=== PATIENT | female | born 1980 | race Caucasian/White ===

== ENCOUNTER 2016-10-08 03:50 | Inpatient (IN) | payer MEDICAID ==
[2016-10-08 04:36] VITALS: BMI 32.9
[2016-10-08] MEDS ORDERED: LACTATED RINGERS 1,000 ML IV PRN (05:11)
[2016-10-08] MEDS ORDERED: OXYTOCIN IN LR 500 ML IV ONE ×2 (05:11→05:25)
[2016-10-08] MEDS ORDERED: LACTATED RINGERS 1,000 ML IV SCH (05:15)
[2016-10-08] MEDS ORDERED: PENICILLIN G POTASSIUM 5 MMU VIAL ONE (05:24)
[2016-10-08] MEDS ORDERED: NS 0.9% (MINI-BAG PLUS) 100 ML IV ONE (05:24)
[2016-10-08] MEDS ORDERED: LIDOCAINE Viscous 2% 15 ML UDCUP ONE (05:25)
[2016-10-08] MEDS ORDERED: LIDOCAINE 1% (PRES FREE) 30 ML VIAL ONE (05:25)
[2016-10-08] MEDS ORDERED: PUMP TUBING ONE (05:25)
[2016-10-08] MEDS ORDERED: MINERAL OIL 25 ML BOT ONE (05:25)
[2016-10-08] MEDS ORDERED: OXYTOCIN 10 UNITS/ML VIAL ONE (05:25)
[2016-10-08] MEDS ORDERED: IV START KIT ONE (05:27)
[2016-10-08] MEDS ORDERED: PENICILLIN G POTASSIUM 5 MMU in NS 0.9% (MINI-BAG PLUS) 100 ML IV ONE (05:30)
[2016-10-08 06:17] LABS: HEMATOCRIT 35.1 % (37.0-47.0); HEMOGLOBIN 11.4 gm/l (12.0-16.0); MEAN CELL VOLUME 83.6 fl (81.0-99.0); MEAN CORPUSCULAR HEMOGLOBIN 27.1 pg (27.0-31.0); MEAN CORPUSCULAR HGB CONC 32.5 g/dl (33.0-37.0); RED CELL DISTRIBUTION WIDTH 15.2 % (11.5-14.5)
[2016-10-08] MEDS ORDERED: OXYTOCIN IN LR 500 ML IV PRN (09:23)
--- NOTE | 2016-10-08 09:23 | PDOC36 ---
Provider Note Subject: cc: Admission H&P HPI: 36 y.o. year old SOLOMON 11/03/2016, by Last Menstrual Period at 36w2d who presents with PROM no in active labor. REVIEW OF SYSTEMS GENERAL: No fever or headache EYES: No double or blurry vision. CARDIOVASCULAR: No chest pain. RESPIRATORY: No severe shortness of breath or cough. GASTROINTESTINAL: No nausea or vomiting or right upper quadrant pain. PSYCHIATRIC: No anxiety or depression. PROBLEMS Patient Active Problem List Diagnosis Date Noted Supervision of normal 04/16/2016 Thrombocytopenia complicating (HCC) 03/25/2016 Dysplasia of cervix 01/11/2012 OB HISTORY #: 1, Date: 05/03/04, Sex: Male, Weight: 3.402 kg (7 lb 8 oz), GA: 40w0d, Delivery: Vaginal, Spontaneous Delivery, Apgar1: None, Apgar5: None, Living: Yes , Comments: None #: 2, Date: 05/29/09, Sex: Male, Weight: 3.175 kg (7 lb), GA: 40w0d, Delivery: Vaginal, Spontaneous Delivery, Apgar1: None, Apgar5: None, Living: Yes, Comments : None #: 3, Current Dating: Based On SOLOMON GA Dif Comments GA Cyc Lut BC Entered By Date Last Menstrual Period on 01/28/16 (Exact Date) 11/03/16 Working Rajani Vincent RN 03/24/16 Ultrasound on 06/29/16 11/02/16 +1d C/w LMP. NL anatomy. Fundal placenta. NL fluid 22w0d Colby Galvin MD 07/01/16 PSH No past surgical history SOC HX reports that she has never smoked. She has never used smokeless tobacco. She reports that she drinks alcohol. She reports that she does not use illicit drugs. ALL No Known Allergies MEDICATIONS PNV PHYSICAL EXAMINATION VITAL SIGNS: BP 117/72 P 84 T 99.1 Estimated body mass index is 31.73 kg/(m^2) as calculated from the following: Height as of 08/13/16: 1.67 m (5' 5.75"). Weight as of 10/06/16: 88.5 kg (195 lb 1.7 oz). Total weight gain is 20.914 kg (46 lb 1.7 oz) FHT: 140's baseline, mod guillermina, + accels Ernest: Intermittent and not consistent SVE: /-2 GENERAL: No distress CARDIOVASCULAR: Regular rate and rhythm, no murmur RESPIRATORY: Clear to auscultation bilaterally, respiratory effort is nonlabored at rest. GASTROINTESTINAL: Gravid no fundal tenderness, vertex by [facility] STUD[facility] O+ Antibody- Rubella Immune Hep B- HIV- GC/Chlamydia- Trep- H/H -, plts 135 GBS unk pending ASSESSMENT 36 y.o. year old SOLOMON 11/03/2016, by Last Menstrual Period at 36w2d who presents with PROM. PLAN Labor- PROM with good story. Not in any consistent pattern. Will begin pitocin augmentation 4 hours after GBS prophylaxis complete x 1. GBS- unk. Prophylaxis started. RH + Gestational Thrombocytopenia- Repeat today with increase to 135. No need for intervention at this time. FWB- category I. Follow per pit protocol.
[2016-10-08] MEDS ORDERED: PENICILLIN G 3 MIL UNIT PREMIX 50 ML IV ONE ×2 (10:07→14:26)
[2016-10-08] MEDS: PENICILLIN G 3 MIL UNIT PREMIX 3 MMU in Premix (D5W) 50 ml 1 EACH IV SCH ×2 (10:13→14:31)
[2016-10-08] MEDS ORDERED: EPIDURAL PUMP SET ONE (11:33)
[2016-10-08] MEDS ORDERED: FENTANYL/ROPIVACAINE EPIDURAL 250 ML EP ONE (11:34)
[2016-10-08] MEDS ORDERED: EPIDURAL PROCEDURE TRAY ONE (11:47)
[2016-10-08] MEDS: LACTATED RINGERS 1,000 ML IV SCH ×3 (12:03→16:09)
[2016-10-08] MEDS ORDERED: EPHEDRINE SULFATE 50 MG/ML 1ML VIAL IV PRN (12:18)
[2016-10-08] MEDS ORDERED: DIPHENHYDRAMINE HCL 50 MG/1 ML VIAL IV PRN (12:18)
[2016-10-08] MEDS ORDERED: ONDANSETRON 4 MG/2ML 2 ML VIAL IV PRN (12:18)
[2016-10-08] MEDS ORDERED: SODIUM CHLORIDE 0.9% 500 ML IV PRN (12:18)
[2016-10-08] MEDS ORDERED: NALOXONE HCL 0.4 MG/ML VIAL IV PRN (12:18)
[2016-10-08] MEDS ORDERED: METOCLOPRAMIDE HCL 5 MG/ML 2ML VIAL IV PRN (12:18)
[2016-10-08] MEDS ORDERED: NALBUPHINE HCL 20 MG/ML AMP IV PRN (12:18)
[2016-10-08] MEDS ORDERED: LACTATED RINGERS 500 ML IV PRN (12:18)
[2016-10-08] MEDS ORDERED: DOCUSATE SODIUM 100 MG CAPSULE PO PRN (17:12)
[2016-10-08] MEDS ORDERED: SENNOSIDES 8.6 MG TABLET PO PRN (17:12)
[2016-10-08] MEDS ORDERED: LANOLIN 50 APPLIC/7G TUBE TP PRN (17:12)
[2016-10-08] MEDS ORDERED: MAGNESIUM HYDROXIDE 30 ML UDCUP PO PRN (17:12)
[2016-10-08] MEDS ORDERED: HYDROCODONE/ACETAMINOPHEN 5/325MG TABLET PO PRN (17:12)
[2016-10-08] MEDS ORDERED: BENZOCAINE/MENTHOL 60 APPLIC/BOT TP PRN (17:12)
--- NOTE | 2016-10-08 17:13 | PCMDEL ---
Delivery Note - Labor 1st stage (hr/min):: 7 hours 30 min 2nd stage (hr/min):: 19 min 3rd stage (hr/min):: 3 min Total (hr/min):: 8 hours Pushed (hr/min):: 19 min - Delivery Delivery (Date): 10/08/16 Delivery (Time): 16:49 Infant Gender: Male Presentation: Cephalic Position: OP Umbilical Cord: 3 Vessel Delayed Cord Clamping:: 2-3 min 1 Minute Total: 9 5 Minute Total: 9 Placenta:: Intact EBL:: 300 Comments:: Presented with PPROM and not in active labor. Started on pitocin augmentation and proceeded on normal labor curve to complete. Delivered via without complications. Delayed cord clamping x 2 min. Vigorous infant. Active third stage with pit and fundal massage. Received 3 doses PCN prior to delivery.
[2016-10-09] MEDS: IBUPROFEN 800 MG TABLET PO PRN ×2 (01:34→21:26)
[2016-10-09 06:47] LABS: HEMATOCRIT 32.1 % (37.0-47.0); HEMOGLOBIN 10.4 gm/l (12.0-16.0)
[2016-10-09] MEDS: FENTANYL/ROPIVACAINE EPIDURAL 250 ML EP SCH (07:07)
[2016-10-09] MEDS: LACTATED RINGERS 1,000 ML IV SCH ×2 (07:18→07:19)
--- NOTE | 2016-10-09 08:35 | PDOC44 ---
- Subjective Day: 1 Reports Pain Tolerable - Objective Temp Pulse Resp BP Pulse Ox 98.8 F 75 16 92/55 10/09/16 07:29 10/09/16 07:29 10/09/16 07:29 10/09/16 07:29 Lab Results 10/09/16 06:20 Hgb 10.4 L Hct 32.1 L Current Medications Generic Name Dose Route Start Last Admin Trade Name Freq PRN Reason Stop Dose Admin Acetaminophen/Hydrocodone Bitart 1 - 2 tab 10/08/16 17:12 [place] 5/325 PO Q4H PRN Pain (Moderate) Benzocaine/Menthol 1 applic 10/08/16 17:12 Dermoplast TP PRN PRN Patient Comfort Docusate Sodium 100 mg 10/08/16 17:12 Colace PO DAILY PRN Comfort Emollient Ointment 1 applic 10/08/16 17:12 [id number] TP PRN PRN sore nipples Ropivacaine/Fentanyl/NS 250 mls @ 0 mls/hr 10/08/16 12:15 10/09/16 07:07 Fentanyl 2 Mcg/Ml + Ropivacaine 0.125% Ep Bag EP Not Given EPI ZI Protocol Per Protocol Ibuprofen 800 mg 10/08/16 17:12 10/09/16 01:34 Motrin PO 800 mg Q6H PRN Administration Pain (Mild) Magnesium Hydroxide 30 ml 10/08/16 17:12 Milk Of Magnesia PO BEDTIME PRN Constipation Senna 17.2 mg 10/08/16 17:12 Senokot PO BEDTIME PRN Comfort Sodium Chloride 10 ml 10/08/16 17:12 10/09/16 01:31 Normal Saline 10ml Flush IV 10 ml PRN PRN Administration IV Flush - Physical Exam General: Afebrile Neurological: Oriented x 4 Lungs: Clear to Auscultation Bilaterally Cardiovascular: Regular Rate and Rhythm Fundus: Firm, Below Umbilicus Abdomen: Normal Bowel Sounds Skin: Normal Color - Problems:Assessment/Plan (1) delivery, delivered Status: AcuteAssessment/Plan: Doing well Normal Exam Encourage Continue routine care Disposition: Stable
[2016-10-10] MEDS: FENTANYL/ROPIVACAINE EPIDURAL 250 ML EP SCH (06:56)
[2016-10-10 08:02] VITALS: BP 95/54
[2016-10-10] MEDS ORDERED: IV START KIT ONE (08:04)
--- NOTE | 2016-10-10 10:06 | PDOC39B ---
Hospital Course: ADMIT DATE: 10/08/16 DISCHARGE DATE: 10/10/16 ADMISSION DIAGNOSES: IUP PPROM PROCEDURES: Augmentation of labor w Pit HISTORY OF PRESENT ILLNESS: 36 year old G3 T2 L2 at 36 weeks 2 days presenting with leakage of fluid HOSPITAL COURSE: The patient was found to have PPROM w inconsistent UCs. Labor augmented w Pit. Pt progressed to complete and had uncomplicated . Although only 36 wks, baby appeared term. By day of discharge the patient is ambulating, eating, voiding, and passing flatus without difficulty. Pain is controlled and lochia is appropriate. She is mainly bottle feeding, and occassionally - Physical Exam Vital Signs: Temp Pulse Resp BP Pulse Ox 97.6 F 62 16 95/54 10/10/16 08:00 10/10/16 08:00 10/10/16 08:00 10/10/16 08:00 General: Afebrile, No Acute Distress Psych/Mental Status: Mood/Affect Appropriate, Judgment/Insight Intact, Bonding Well Neurological: Grossly Intact, Alert, Normal Speech HEENT: Atraumatic, Mucous membr. moist/pink Lungs: Clear to Auscultation Bilaterally Cardiovascular: Regular Rate and Rhythm Breast: Soft Fundus: Firm, Midline, Below Umbilicus Skin: Normal Color, Warm, Dry, Intact, No Rash - Discharge Diagnosis (1) delivery, delivered Status: AcuteAssessment/Plan: Doing well PPD#2 Normal Exam support DC home PP precautions given pelvic rest x 6-8 wks (2) (spontaneous vaginal delivery) Status: Acute - Discharge Plan Condition: Good Disposition: Home Instruction Forms: Vaginal Discharge Instructions Prescriptions: Docusate Sodium [COLACE 100 MG CAPSULE (F)] 100 mg PO DAILY PRN #60 PRN Reason: Comfort Benzocaine/Menthol [DERMOPLAST SPRAY (F)] 1 applic TP PRN PRN #1 PRN Reason: Patient Comfort Ibuprofen [IBUPROFEN 800 MG TABLET ([facility])] 800 mg PO Q6H PRN #60 PRN Reason: Pain (Mild) Lanolin [LANOLIN 7 G TUBE (F)] 1 applic TP PRN PRN #1 PRN Reason: Sore Nipples Follow-Up: Colby Galvin MD [Primary Care Provider] - In 2-3 days (clinic to call to sched 3d mom and baby, pt to sched 6 wk PP exam)
== END 2016-10-10 12:05 | disposition home or self-care (01) | DRG 775 ==
LOC: FBC 03:50 → FBCOUT 03:50 → FBC 04:50 → FBCOUT 04:50
PROVIDERS: ADMIT Family Medicine; ATTEND Family Medicine
PROC: 10E0XZZ Delivery of Products of Conception, External Approach (ICD-10-PCS; principal; 2016-10-08)
DX: O42.913 Preterm premature rupture of membranes, unspecified as to length of time between rupture and onset of labor, third trimester (principal); O99.12 Other diseases of the blood and blood-forming organs and certain disorders involving the immune mechanism complicating childbirth; D69.6 Thrombocytopenia, unspecified; Z3A.36 36 weeks gestation of pregnancy; Z37.0 Single live birth; O09.523 Supervision of elderly multigravida, third trimester

== ENCOUNTER 2016-10-14 14:02 | Outpatient (CLI) | payer MEDICAID | END 2016-10-14 14:03 | disposition home or self-care (01) | LOC: BABIESSH 14:02 | PROVIDERS: ATTEND Family Medicine | DX: Z39.1 Encounter for care and examination of lactating mother (principal) ==